=== PATIENT | male | born 1980 | race Hispanic/Latino ===

== ENCOUNTER 2022-12-13 09:59 | Emergency (ER) | payer OTHER, SELFPAY ==
[2022-12-13 10:02] VITALS: BP 148/99; PULSE 93; RESP 18; TEMP 36.2; O2SAT 100; BMI 28.6
--- NOTE | 2022-12-13 10:05 | DI.RAD.S_ITS ---
PROCEDURE: XR CHEST 1V INDICATIONS: Shortness of breath TECHNIQUE: One view of the chest was acquired. COMPARISON: None. FINDINGS: Surgical changes and devices: Cholecystectomy clips. Lungs and pleura: Lungs are clear. No pleural effusions or pneumothorax. Mediastinum: Mediastinal contours appear normal. Heart size is normal. Bones and chest wall: No suspicious bony lesions. Overlying soft tissues appear unremarkable. IMPRESSION: Portable chest within normal limits for age. Dictated by: Marina Morales M.D. on 12/13/2022 at 10:59 Approved by: Marina Morales M.D. on 12/13/2022 at 11:00
[2022-12-13 10:37] LABS: INR 1.1 (0.9-1.3); Prothrombin Time 12.1 SECONDS (10.1-12.7)
[2022-12-13 10:43] LABS: Add Manual Diff / Slide Review NO; Basophils Absolute Auto 0 /uL (0-100); Basophils Percent Auto 0.4 % (0-2); Eosinophils Absolute Auto 200 /uL (0-450); Eosinophils Percent Auto 2.7 % (2-4); Hemoglobin 14.4 g/dL (13.5-17.5); Lymphocytes Absolute Auto 2500 /uL (1100-4500); Lymphocytes Percent Auto 45.3 % (25-40); Mean Corpuscular HGB Conc 34.3 % (30-36); Mean Corpuscular Hemoglobin 30.1 PG (26-34); Mean Corpuscular Volume 87.7 fL (80-100); Monocytes Absolute Auto 500 /uL (0-900); Monocytes Percent Auto 9.6 % (3-14); Neutrophils Absolute Auto 2400 /uL (1500-7000); Platelet Count 235 X10^3/uL (150-400); Red Blood Cell Count 4.79 X10^6/uL (4.5-5.9); Red Cell Distribution Width 13.5 % (11.6-14.8); White Blood Cell Count 5.6 X10^3/uL (4.5-11.0)
[2022-12-13 10:45] LABS: Lactate (Lactic Acid) 1.4 mmol/L (0.7-2.1)
[2022-12-13 10:46] LABS: Alanine Aminotransferase 29 IU/L (<50); Albumin 4.3 g/dL (3.5-5.0); Albumin Globulin Ratio 1.5 (1.0-2.8); Alkaline Phosphatase 73 U/L (38-126); Aspartate Aminotransferase 28 IU/L (17-59); BUN Creatinine Ratio 22.8 (6-22); Bilirubin Total 0.4 mg/dL (0.2-1.3); Blood Urea Nitrogen 18 mg/dL (9-20); Calcium 8.9 mg/dL (8.4-10.2); Carbon Dioxide 22 mmol/L (22-32); Chloride 102 mmol/L (98-107); Estimated Glomerular Filt Rate > 60 mL/min (>60); Globulin 2.9 g/dL (1.7-4.1); Glucose 108 mg/dL (70-100); HEMOLYSIS < 15 (0-50); Sodium 134 mmol/L (137-145); Total Protein 7.2 g/dL (6.3-8.2)
[2022-12-13 10:57] LABS: NT-proBNP (BNP-Adult 18+) 43 pg/mL (<125); Troponin I < 0.012 ng/mL (0.01-0.034)
--- NOTE | 2022-12-13 12:38 | ED.SOB ---
HPI - SOB/Dyspnea <Hung Wall PA-C - Last Filed: 12/13/22 14:48> General Chief Complaint: Shortness of Breath/Dyspnea Stated Complaint: cant breathe Time Seen by Provider: 12/13/22 12:35 Source: patient Mode of arrival: Ambulatory Limitations: no limitations History of Present Illness HPI Narrative: 42-year-old male with past medical history anxiety presents to the ED with 1 episode of shortness of breath, tingling in bilateral hands, lightheadedness this morning. Patient states that he had sudden onset of shortness of breath, bilateral hand tingling, nausea and lightheadedness this morning. Patient states that he has not had any increased stress. Patient denies that he is had symptoms like these from his anxiety, although he has had some milder panic attacks. Patient states that his symptoms have completely and spontaneous resolved in the ED. patient denies chest pain, shortness of breath. Patient's father suffered an early cardiac at age 48, after 3 heart attacks in his mid to late 40s. Related Data Allergies Allergy/AdvReac Type Severity Reaction Status Date / Time No Known Drug Allergies Allergy Verified 12/13/22 10:02 Review of Systems <Hung Wall PA-C - Last Filed: 12/13/22 14:48> Review of Systems ROS Unobtainable: All systems reviewed & are unremarkable except as noted in HPI and below Constitutional Constitutional: Denies chills, Denies fatigue, Denies fever(s), Denies frequent falls, Denies lethargy and Denies weakness Eyes Eyes: Denies change in vision, Denies eye discharge, Denies irritation and Denies loss of vision ENT Ears, Nose, Mouth, and Throat: Denies change in voice, Denies dizziness, Denies neck pain, Denies sore throat and Denies throat swelling Cardiovascular Cardiovascular: Denies chest pain, Denies irregular heart rhythm, Denies lightheadedness, Denies palpitations, Reports dyspnea, Denies dyspnea on exertion and Denies orthopnea Respiratory Respiratory: Denies cough, Reports dyspnea, Denies dyspnea on exertion and Denies wheezing Gastrointestinal Gastrointestinal: Denies abdominal pain, Denies change in bowel habits, Denies diarrhea, Reports nausea and Denies vomiting Genitourinary Genitourinary: Denies hematuria, Denies flank pain, Denies urinary incontinence and Denies urinary urgency Musculoskeletal Musculoskeletal: Denies back pain, Denies muscle weakness, Denies neck pain, Denies numbness and Reports tingling (Bilateral hands) Integumentary/Breasts Skin/Breast: Denies pruritus, Denies erythema, Denies rash and Denies wounds Neurologic Neurologic: Denies behavioral changes, Denies confusion, Denies dizziness, Denies frequent falls, Denies loss of vision, Denies numbness, Reports tingling (Bilateral hands) and Denies weakness Psychiatric Psychiatric: Denies anxiety, Denies behavioral changes, Denies confusion, Denies depression, Denies homicidal ideation and Denies suicidal ideation Endocrine Endocrine: Denies fatigue, Denies flushing and Denies palpitations Hematologic/Lymphatic Hematologic/Lymphatic: Denies easy bruising Allergic/Immunologic Allergic/Immunologic: Denies urticaria, Denies throat swelling and Denies wheezing Patient History <Hung Wall PA-C - Last Filed: 12/13/22 14:48> Social History Smoking Status: Unknown if ever smoked Smoking Status: Unknown if ever smoked alcohol intake frequency: holidays/special occasions only Substance Use Type: marijuana Exam <uHng Wall PA-C - Last Filed: 12/13/22 14:48> Narrative Exam Narrative: Const General:?cooperative, healthy appearing and comfortable [facility] Head:?normal to inspection Ears:?hearing grossly normal bilaterally Nose:?external nose normal Face and sinus:?normal facial exam and sinuses nontender Mouth:?oral mucosae normal Throat:?posterior oropharynx normal Eyes General:?appearance normal, both eyes and all related structures Neck Neck:?normal visual inspection and no lymphadenopathy noted Resp Effort & Inspection:?normal respiratory effort Auscultation:?clear to auscultation bilaterally Cardio Rate:?regular rate Rhythm:?regular rhythm Neuro General:?patient alert, patient awake and patient oriented x3 Initial Vital Signs Initial Vital Signs: Vital Signs Temperature 97.2 F L 12/13/22 10:02 Pulse Rate 93 H 12/13/22 10:02 Respiratory Rate 18 12/13/22 10:02 Blood Pressure 148/99 H 12/13/22 10:02 Pulse Oximetry 100 12/13/22 10:02 Oxygen Delivery Method Room Air 12/13/22 10:02 <Margarita Vigil DO - Last Filed: 12/15/22 01:18> Initial Vital Signs Initial Vital Signs: Vital Signs Temperature 97.2 F L 12/13/22 10:02 Pulse Rate 93 H 12/13/22 10:02 Respiratory Rate 18 12/13/22 10:02 Blood Pressure 148/99 H 12/13/22 10:02 Pulse Oximetry 100 12/13/22 10:02 Oxygen Delivery Method Room Air 12/13/22 10:02 Course <Hung Wall PA-C - Last Filed: 12/13/22 14:48> Orders Ordered: ED Orders 12/13/22 10:05 XR chest 1V Stat Measure peak expiratory flow ONCE RT Consult Eval and Treat NOW 12/13/22 10:09 EKG-12 Lead Stat 12/13/22 10:23 Complete Blood Count AUTO DIFF Stat Comprehensive Metabolic Panel Stat Lactate (Lactic Acid) Stat NT-proBNP (BNP-Adult 18+) Stat Prothrombin Time INR Stat Troponin I Stat 12/13/22 13:12 Troponin I Stat Vital Signs Vital signs: Vital Signs - 8 hr 12/13/22 10:02 12/13/22 12:44 12/13/22 14:08 Temperature 97.2 F L Pulse Rate 93 H 58 L 60 Respiratory Rate 18 14 16 Blood Pressure 148/99 H 115/61 Pulse Oximetry 100 99 98 Oxygen Delivery Method Room Air Room Air Room Air <Margarita Vigil, DO - Last Filed: 12/15/22 01:18> Orders Ordered: ED Orders 12/13/22 10:05 XR chest 1V Stat Measure peak expiratory flow ONCE RT Consult Eval and Treat NOW 12/13/22 10:09 EKG-12 Lead Stat 12/13/22 10:23 Complete Blood Count AUTO DIFF Stat Comprehensive Metabolic Panel Stat Lactate (Lactic Acid) Stat NT-proBNP (BNP-Adult 18+) Stat Prothrombin Time INR Stat Troponin I Stat 12/13/22 13:12 Troponin I Stat Vital Signs Vital signs: Vital Signs - 8 hr 12/13/22 10:02 12/13/22 12:44 12/13/22 14:08 Temperature 97.2 F L Pulse Rate 93 H 58 L 60 Respiratory Rate 18 14 16 Blood Pressure 148/99 H 115/61 Pulse Oximetry 100 99 98 Oxygen Delivery Method Room Air Room Air Room Air MDM - SOB/Dyspnea <ESTEFANI [place] Last Filed: 12/13/22 14:48> Lab Data 12/13/22 10:23 12/13/22 10:23 Labs: Lab Results 12/13/22 12/13/22 12/13/22 Range/Units 10:23 10:23 10:23 WBC 5.6 (4.5-11.0) X10^3/uL RBC 4.79 (4.5-5.9) X10^6/uL Hgb 14.4 (13.5-17.5) g/dL Hct 42.0 (41-53) % MCV 87.7 (80-100) fL MCH 30.1 (26-34) PG MCHC 34.3 (30-36) % RDW 13.5 (11.6-14.8) % Plt Count 235 (150-400) X10^3/uL Neut % (Auto) 42.0 L (50-75) % Lymph % (Auto) 45.3 H (25-40) % [place] % (Auto) 9.6 (3-14) % Eos % (Auto) 2.7 (2-4) % Baso % (Auto) 0.4 (0-2) % Neut # (Auto) 2400 (8662-2869) /uL Lymph # (Auto) 2500 (0917-0668) /uL [place] # (Auto) 500 (0-900) /uL Eos # (Auto) 200 (0-450) /uL Baso # (Auto) 0 (0-100) /uL PT 12.1 (10.1-12.7) SECONDS INR 1.1 (0.9-1.3) Sodium 134 L (137-145) mmol/L Potassium 4.0 (3.4-5.1) mmol/L Chloride 102 (98-107) mmol/L Carbon Dioxide 22 (22-32) mmol/L BUN 18 (9-20) mg/dL Creatinine 0.79 (0.66-1.25) mg/dL Estimated GFR > 60 (>60) mL/min BUN/Creatinine Ratio 22.8 H (6-22) Glucose 108 H (70-100) mg/dL Lactate (0.7-2.1) mmol/L Calcium 8.9 (8.4-10.2) mg/dL Total Bilirubin 0.4 (0.2-1.3) mg/dL AST 28 (17-59) IU/L ALT 29 (<50) IU/L Alkaline Phosphatase 73 (38-126) U/L Troponin I < 0.012 (0.01-0.034) ng/mL NT-Pro-B Natriuret Pep 43 (<125) pg/mL Total Protein 7.2 (6.3-8.2) g/dL Albumin 4.3 (3.5-5.0) g/dL Globulin 2.9 (1.7-4.1) g/dL Albumin/Globulin Ratio 1.5 (1.0-2.8) 12/13/22 12/13/22 Range/Units 10: 13:12 WBC (4.5-11.0) X10^3/uL RBC (4.5-5.9) X10^6/uL Hgb (13.5-17.5) g/dL Hct (41-53) % MCV (80-100) fL MCH (26-34) PG MCHC (30-36) % RDW (11.6-14.8) % Plt Count (150-400) X10^3/uL Neut % (Auto) (50-75) % Lymph % (Auto) (25-40) % [place] % (Auto) (3-14) % Eos % (Auto) (2-4) % Baso % (Auto) (0-2) % Neut # (Auto) (7416-3949) /uL Lymph # (Auto) (3460-7184) /uL [place] # (Auto) (0-900) /uL Eos # (Auto) (0-450) /uL Baso # (Auto) (0-100) /uL PT (10.1-12.7) SECONDS INR (0.9-1.3) Sodium (137-145) mmol/L Potassium (3.4-5.1) mmol/L Chloride (98-107) mmol/L Carbon Dioxide (22-32) mmol/L BUN (9-20) mg/dL Creatinine (0.66-1.25) mg/dL Estimated GFR (>60) mL/min BUN/Creatinine Ratio (6-22) Glucose (70-100) mg/dL Lactate 1.4 (0.7-2.1) mmol/L Calcium (8.4-10.2) mg/dL Total Bilirubin (0.2-1.3) mg/dL AST (17-59) IU/L ALT (<50) IU/L Alkaline Phosphatase (38-126) U/L Troponin I < 0.012 (0.01-0.034) ng/mL NT-Pro-B Natriuret Pep (<125) pg/mL Total Protein (6.3-8.2) g/dL Albumin (3.5-5.0) g/dL Globulin (1.7-4.1) g/dL Albumin/Globulin Ratio (1.0-2.8) MDM Narrative Medical decision making narrative: 42-year-old male with past medical history anxiety presents to the ED with 1 episode of shortness of breath, tingling in bilateral hands, lightheadedness this morning. Concern for ACS versus dehydration versus panic attack versus other. Will obtain EKG, chest x-ray, labs, troponin, BNP. Will re-evaluate. Labs were within normal limits. Troponin and BNP within normal limits. EKG is normal sinus rhythm, no acute ST-T changes. Chest x-ray without acute findings. Given family history of early cardiac , discussed the importance of a 2nd troponin and EKG with patient. Will obtain repeat troponin and EKG and reassess. Repeat troponin and EKG with no acute findings. Discussed ED return precautions with patient. Patient verbalized understanding. HEART score: 2, low risk, can discharge home. Medical records reviewed: Yes <Margarita Vigil DO - Last Filed: 12/15/22 01:18> Lab Data Labs: Lab Results 12/13/22 12/13/22 12/13/22 Range/Units 10:23 10:23 10:23 WBC 5.6 (4.5-11.0) X10^3/uL RBC 4.79 (4.5-5.9) X10^6/uL Hgb 14.4 (13.5-17.5) g/dL Hct 42.0 (41-53) % MCV 87.7 (80-100) fL MCH 30.1 (26-34) PG MCHC 34.3 (30-36) % RDW 13.5 (11.6-14.8) % Plt Count 235 (150-400) X10^3/uL Neut % (Auto) 42.0 L (50-75) % Lymph % (Auto) 45.3 H (25-40) % [place] % (Auto) 9.6 (3-14) % Eos % (Auto) 2.7 (2-4) % Baso % (Auto) 0.4 (0-2) % Neut # (Auto) 2400 (5863-1303) /uL Lymph # (Auto) 2500 (2167-8809) /uL [place] # (Auto) 500 (0-900) /uL Eos # (Auto) 200 (0-450) /uL Baso # (Auto) 0 (0-100) /uL PT 12.1 (10.1-12.7) SECONDS INR 1.1 (0.9-1.3) Sodium 134 L (137-145) mmol/L Potassium 4.0 (3.4-5.1) mmol/L Chloride 102 (98-107) mmol/L Carbon Dioxide 22 (22-32) mmol/L BUN 18 (9-20) mg/dL Creatinine 0.79 (0.66-1.25) mg/dL Estimated GFR > 60 (>60) mL/min BUN/Creatinine Ratio 22.8 H (6-22) Glucose 108 H (70-100) mg/dL Lactate (0.7-2.1) mmol/L Calcium 8.9 (8.4-10.2) mg/dL Total Bilirubin 0.4 (0.2-1.3) mg/dL AST 28 (17-59) IU/L ALT 29 (<50) IU/L Alkaline Phosphatase 73 (38-126) U/L Troponin I < 0.012 (0.01-0.034) ng/mL NT-Pro-B Natriuret Pep 43 (<125) pg/mL Total Protein 7.2 (6.3-8.2) g/dL Albumin 4.3 (3.5-5.0) g/dL Globulin 2.9 (1.7-4.1) g/dL Albumin/Globulin Ratio 1.5 (1.0-2.8) 12/13/22 12/13/22 Range/Units 10:23 13:12 WBC (4.5-11.0) X10^3/uL RBC (4.5-5.9) X10^6/uL Hgb (13.5-17.5) g/dL Hct (41-53) % MCV (80-100) fL MCH (26-34) PG MCHC (30-36) % RDW (11.6-14.8) % Plt Count (150-400) X10^3/uL Neut % (Auto) (50-75) % Lymph % (Auto) (25-40) % [place] % (Auto) (3-14) % Eos % (Auto) (2-4) % Baso % (Auto) (0-2) % Neut # (Auto) (6965-4419) /uL Lymph # (Auto) (1872-0465) /uL [place] # (Auto) (0-900) /uL Eos # (Auto) (0-450) /uL Baso # (Auto) (0-100) /uL PT (10.1-12.7) SECONDS INR (0.9-1.3) Sodium (137-145) mmol/L Potassium (3.4-5.1) mmol/L Chloride (98-107) mmol/L Carbon Dioxide (22-32) mmol/L BUN (9-20) mg/dL Creatinine (0.66-1.25) mg/dL Estimated GFR (>60) mL/min BUN/Creatinine Ratio (6-22) Glucose (70-100) mg/dL Lactate 1.4 (0.7-2.1) mmol/L Calcium (8.4-10.2) mg/dL Total Bilirubin (0.2-1.3) mg/dL AST (17-59) IU/L ALT (<50) IU/L Alkaline Phosphatase (38-126) U/L Troponin I < 0.012 (0.01-0.034) ng/mL NT-Pro-B Natriuret Pep (<125) pg/mL Total Protein (6.3-8.2) g/dL Albumin (3.5-5.0) g/dL Globulin (1.7-4.1) g/dL Albumin/Globulin Ratio (1.0-2.8) ECG Data Interpretation: [facility] EKG 1 sinus rhythm rate 88 IN interval 162 QRS 86 QTC 450 tall T-waves precordial no obvious ST changes no priors to compare EKG 2. Sinus rhythm rate 63 persistent T-waves no J-point elevation agree with computer probable early repolarization Discharge Plan Departure Patient Disposition: Home Clinical Impression: Shortness of Breath Instructions: DI for Shortness of Breath Activity Restrictions/Additional Instructions: Were evaluated in the ED today for some shortness of breath and tingling in the hands. Your EKG, chest x-ray, labs were normal. It is reassuring that your symptoms have spontaneous resolved in the ED. However, it is recommended that we repeat your troponin and EKG to rule out cardiac causes of your symptoms. We have repeated your EKG and troponin which were again normal. At this point, it appears that your symptoms are less likely due to cardiac causes and more likely a panic attack. Please return to the ED if you have worsening symptoms, chest pain, shortness of breath, nausea, vomiting. Please follow-up with your PCP as soon as possible. Referrals: Miscellaneous,Doctor, [Primary Care Provider] - Stand Alone Forms: Patient Portal/API <Margarita Vigil DO - Last Filed: 12/15/22 01:18> Cosign ED Attending Ranjanature Attestation: I was immediately available in the department for consultation. Documentation has been reviewed.
[2022-12-13 12:44] VITALS: BP 115/61; PULSE 58; RESP 14; O2SAT 99
--- NOTE | 2022-12-13 12:46 | PC.NURSE ---
Pt denies anything stressful in life,hx anxiety. Pt felt like he couldn't get a deep breath,heaviness in chest and tingling in extremities.
[2022-12-13 13:39] LABS: Troponin I < 0.012 ng/mL (0.01-0.034)
[2022-12-13 14:08] VITALS: PULSE 60; RESP 16; O2SAT 98
== END 2022-12-13 14:09 | disposition home or self-care (01) ==
PROVIDERS: Emergency Medicine; Emergency Provider Student in an Organized Health Care Education/Training Program
DX: R06.02 Shortness of breath (principal)
CPT/HCPCS: 36415; 71045; 80053; 83605; 83880; 84484; 85025; 85610; 93005; 99283; 99284

== ENCOUNTER → 2023-05-18 09:45 | Outpatient (CLI) | payer BC, SELFPAY ==
[2023-05-18 10:23] LABS: Appearance Urine UA CLEAR; Bilirubin Urine UA NEGATIVE (NEGATIVE); Color Urine UA YELLOW; Glucose Urine UA NEGATIVE (Negative); Ketones Urine UA NEGATIVE (NEGATIVE); Leukocyte Esterase Urine UA NEGATIVE (NEGATIVE); Nitrite Urine UA NEGATIVE (Negative); Occult Blood Urine UA NEGATIVE (Negative); Protein Urine UA NEGATIVE (Negative); Urobilinogen Urine UA 0.2 E.U./dL (0.2)
[2023-05-18 10:30] LABS: Add Manual Diff / Slide Review NO; Basophils Absolute Auto 0 /uL (0-100); Basophils Percent Auto 0.3 % (0-2); Eosinophils Absolute Auto 200 /uL (0-450); Eosinophils Percent Auto 3.6 % (2-4); Hematocrit 44.2 % (41-53); Hemoglobin 15.3 g/dL (13.5-17.5); Lymphocytes Absolute Auto 2400 /uL (1100-4500); Lymphocytes Percent Auto 39.4 % (25-40); Mean Corpuscular HGB Conc 34.6 % (30-36); Mean Corpuscular Hemoglobin 30.6 PG (26-34); Mean Corpuscular Volume 88.3 fL (80-100); Monocytes Absolute Auto 500 /uL (0-900); Monocytes Percent Auto 7.5 % (3-14); Neutrophils Absolute Auto 3000 /uL (1500-7000); Neutrophils Percent Auto 49.2 % (50-75); Platelet Count 247 X10^3/uL (150-400); Red Blood Cell Count 5.01 X10^6/uL (4.5-5.9); Red Cell Distribution Width 13.9 % (11.6-14.8); White Blood Cell Count 6.1 X10^3/uL (4.5-11.0)
[2023-05-18 10:53] LABS: Alanine Aminotransferase 38 IU/L (<50); Albumin 4.5 g/dL (3.5-5.0); Albumin Globulin Ratio 1.4 (1.0-2.8); Alkaline Phosphatase 53 U/L (38-126); Aspartate Aminotransferase 28 IU/L (17-59); BUN Creatinine Ratio 19.5 (6-22); Bilirubin Total 0.7 mg/dL (0.2-1.3); Blood Urea Nitrogen 17 mg/dL (9-20); Carbon Dioxide 23 mmol/L (22-32); Chloride 106 mmol/L (98-107); Cholesterol 220 mg/dL (140-199); Estimated Glomerular Filt Rate > 60 mL/min (>60); Globulin 3.2 g/dL (1.7-4.1); Glucose 97 mg/dL (70-100); HDL Cholesterol 33 mg/dL (40-60); HEMOLYSIS 16 (0-50); LDL Cholesterol Calculated 165 mg/dL (<100); Potassium 4.6 mmol/L (3.4-5.1); Sodium 140 mmol/L (137-145); Total Protein 7.7 g/dL (6.3-8.2); Triglycerides 112 mg/dL (35-150)
[2023-05-18 10:58] LABS: Bacteria Urine None Seen; Culture Indicated Urine Cult Not Indicated; RBC Urine None Seen (0-5/HPF); Squamous Epithelial Cell Urine None Seen (0-5/HPF); Urine Volume 10mL (spun); WBC Urine 0-1/HPF (0-5/HPF)
[2023-05-18 12:13] LABS: Hemoglobin A1C% w Est Avg Glu 5.3 % (4.0-6.0)
[2023-05-24 15:00] LABS: HIV-1 RNA by PCR <20 copies/mL (.)
== END ==
PROVIDERS: Referring Provider Internal Medicine; Visit Provider Internal Medicine
DX: B20 Human immunodeficiency virus [HIV] disease (principal)
CPT/HCPCS: 36415; 80053; 80061; 81001; 83036; 85025; 87536

== ENCOUNTER → 2024-03-23 09:17 | Outpatient (CLI) | payer BC, SELFPAY ==
[2024-03-23 10:23] LABS: Appearance Urine UA CLEAR; Bilirubin Urine UA NEGATIVE (NEGATIVE); Color Urine UA YELLOW; Glucose Urine UA NEGATIVE (Negative); Ketones Urine UA NEGATIVE (NEGATIVE); Leukocyte Esterase Urine UA NEGATIVE (NEGATIVE); Nitrite Urine UA NEGATIVE (Negative); Occult Blood Urine UA NEGATIVE (Negative); Protein Urine UA NEGATIVE (Negative); Specific Gravity Urine UA 1.015 (1.000-1.035); Urobilinogen Urine UA 0.2 E.U./dL (0.2)
[2024-03-23 10:37] LABS: Bacteria Urine Occasional (0-1); RBC Urine 0-1/HPF (0-5/HPF); Squamous Epithelial Cell Urine None Seen (0-5/HPF); Urine Volume 10mL (spun); WBC Urine 0-1/HPF (0-5/HPF)
[2024-03-23 10:38] LABS: Culture Indicated Urine Specimen Cultured
[2024-03-23 11:44] LABS: Alanine Aminotransferase 44 IU/L (<50); Albumin 4.4 g/dL (3.5-5.0); Albumin Globulin Ratio 1.7 (1.0-2.8); Alkaline Phosphatase 58 U/L (38-126); Aspartate Aminotransferase 34 IU/L (17-59); BUN Creatinine Ratio 18.8 (6-22); Bilirubin Total 0.4 mg/dL (0.2-1.3); Blood Urea Nitrogen 18 mg/dL (9-20); Calcium 9.4 mg/dL (8.4-10.2); Carbon Dioxide 26 mmol/L (22-32); Chloride 105 mmol/L (98-107); Cholesterol 201 mg/dL (140-199); Estimated Glomerular Filt Rate > 60 mL/min (>60); Globulin 2.6 g/dL (1.7-4.1); Glucose 102 mg/dL (70-100); HDL Cholesterol 34 mg/dL (40-60); HEMOLYSIS < 15 (0-50); LDL Cholesterol Calculated 151 mg/dL (<100); Potassium 4.7 mmol/L (3.4-5.1); Sodium 138 mmol/L (137-145); Triglycerides 81 mg/dL (35-150)
[2024-03-25 14:35] LABS: Absolute CD 4 Helper 907 /uL (359-1519); Eosinophils 4 % (Not Estab.); Eosinophils (Absolute) 0.2 x10E3/uL (0.0-0.4); Hemacrit 46.2 % (37.5-51.0); Hemoglobin 15.6 g/dL (13.0-17.7); Immature Granulocytes 1 % (Not Estab.); Lymphocytes 40 % (Not Estab.); Lymphocytes (Absolute) 2.4 x10E3/uL (0.7-3.1); MCHC 30.4 pg (26.6-33.0); MCHC 33.8 g/dL (31.5-35.7); MCV 90 fL (79-97); Monocytes 9 % (Not Estab.); Monocytes (Absolute) 0.5 x10E3/uL (0.1-0.9); Neutrophils 45 % (Not Estab.); Neutrophils (Absolute) 2.9 x10E3/uL (1.4-7.0); Percent CD 4 Pos Lymph 37.8 % (30.8-58.5); Platelets 285 x10E3/uL (150-450); RDW 13.5 % (11.6-15.4); Red Blood Cells 5.13 x10E6/uL (4.14-5.80); White Blood Cells 6.1 x10E3/uL (3.4-10.8)
[2024-03-27 15:38] LABS: HIV-1 RNA by PCR <20 copies/mL (.)
== END ==
PROVIDERS: PCP Family Medicine; Referring Provider Family Medicine; Visit Provider Family Medicine
DX: Z51.81 Encounter for therapeutic drug level monitoring (principal); Z21 Asymptomatic human immunodeficiency virus [HIV] infection status
CPT/HCPCS: 36415; 80053; 80061; 81001; 86360; 86361; 87086; 87536

== ENCOUNTER 2024-06-08 11:49 | Emergency (ER) | payer BC, SELFPAY ==
[2024-06-08] VITALS (13 sets, daily range): BP systolic 127–141; BP diastolic 68–96; PULSE 62–83; RESP 14–23; TEMP 37.1; O2SAT 93–98; BMI 28.6
--- NOTE | 2024-06-08 12:55 | DI.US.S_ITS ---
PROCEDURE: US PERIPH VENOUS UP EXTREM RT INDICATIONS: swollen, painful arm. atraumatic. TECHNIQUE: Real-time imaging, as well as color and pulse Doppler interrogation, was performed of the upper extremity deep veins from the inferior neck to the antecubital fossa. COMPARISON: None. FINDINGS: The internal jugular vein, visualized portions of the subclavian vein, axillary, and brachial veins are free of intraluminal thrombus. Where physically possible, the veins are normally compressible. Color and pulse Doppler demonstrate normal intraluminal flow, with expected phasicity and pulsatility. Additional scanning of the cephalic and basilic veins of the superficial system demonstrates normal compressibility, without thrombus. IMPRESSION: No findings of upper extremity deep venous thrombosis can be seen. Dictated by: Marina Morales M.D. on 06/08/2024 at 13:42 Approved by: Marina Morales M.D. on 06/08/2024 at 13:42
--- NOTE | 2024-06-08 12:58 | ED.EXTPRO ---
HPI - Extremity Problem <Juliet Leyva PA-C - Last Filed: 06/08/24 18:33> General Chief complaint: Extremity Problem,Nontraumatic Stated complaint: Pain in Right Arm Time Seen by Provider: 06/08/24 12:01 Mode of arrival: Ambulatory History of Present Illness HPI Narrative: 43-year-old male with history of HIV positive x 20 years, stable on Bictarvy, here today for right forearm pain x1 week. States for the last week he has had gradually increasing pain deep in his right forearm without associated swelling or redness. No associated trauma or injury. 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 States his arm feels warm. States he feels a numb tingling sensation in his hand and wrist at times. States the pain is worse this morning. Since yesterday he has also had discomfort that extends into his right pectoral region. There is no associated shortness of breath or chest pain, but he does feel the discomfort in the pectoral/right axillary region. His father had a heart attack at age 40 and another at age 50 from which she . Patient's states that patient's dad may or may not have had a blood clot in his upper extremity as well. Patient denies any IV drug use, has had any recent IVs or injections in the arm. Related Data Previous Rx's Medication Instructions Recorded citalopram 20 mg tablet 20 mg PO DAILY #90 tabs 03/15/24 bictegravir 50 mg-emtricitabine 1 tab PO DAILY #90 tabs 03/25/24 200 mg-tenofovir alafenam 25 mg tablet (Biktarvy) Allergies Allergy/AdvReac Type Severity Reaction Status Date / Time No Known Drug Allergies Allergy Verified 06/08/24 11:53 Review of Systems <Juliet Leyva PA-C - Last Filed: 06/08/24 18:33> Review of Systems ROS Unobtainable: All systems reviewed & are unremarkable except as noted in HPI and below Patient History <Juliet Leyva PA-C - Last Filed: 06/08/24 18:33> Medical History (Updated 06/08/24 @ 21:31 by Margarita Vigil DO) Anxiety Depression ELIZA (obstructive sleep apnea) Colon polyps HIV (human immunodeficiency virus infection) Social History Smoking Status: Unknown if ever smoked Smoking Status: Unknown if ever smoked alcohol intake frequency: holidays/special occasions only Exam <Juliet Leyva PA-C - Last Filed: 06/08/24 18:33> Narrative Exam Narrative: GENERAL: [43] year old patient appears stated age. Well-developed patient, in no acute distress. HEAD: Atraumatic. Normocephalic. EYES: Pupils equal round and reactive. Extraocular motions intact. No scleral icterus. No injection or drainage. ENT: Nose without bleeding, purulent drainage. Airway patent NECK: Trachea midline. Non tender CARDIOVASCULAR: Regular rate and rhythm without murmurs, gallops, or rubs. RESPIRATORY: Clear to auscultation. Breath sounds equal bilaterally. No wheezes, rales, or rhonchi. EXTREMITIES: Right upper extremity without obvious edema, erythema, or other visible abnormality. Full range of motion of the shoulder, elbow, wrist and fingers. There is no joint pain or tenderness on palpation or range of motion. His upper forearm is warm to the touch and slightly firm in 1 area but there is no erythema, induration, or fluctuance noted. Does not appear infectious. Normal cap refill, signs of perfusion, and sensation in the upper extremity. NEURO: AOx3. No focal neurologic deficits. SKIN: No rash or erythema of visible areas Initial Vital Signs Initial Vital Signs: Vital Signs Temperature 98.8 F 06/08/24 11:53 Pulse Rate 78 06/08/24 11:53 Respiratory Rate 14 06/08/24 11:53 Blood Pressure 138/82 06/08/24 11:53 Pulse Oximetry 98 06/08/24 11:53 Oxygen Delivery Method Room Air 06/08/24 11:53 <Margarita Vigil DO - Last Filed: 06/08/24 21:32> Initial Vital Signs Initial Vital Signs: Vital Signs Temperature 98.8 F 06/08/24 11:53 Pulse Rate 78 06/08/24 11:53 Respiratory Rate 14 06/08/24 11:53 Blood Pressure 138/82 06/08/24 11:53 Pulse Oximetry 98 06/08/24 11:53 Oxygen Delivery Method Room Air 06/08/24 11:53 Course <Juliet Leyva PA-C - Last Filed: 06/08/24 18:33> Orders Ordered: ED Orders 06/08/24 12:55 US periph venous up extrem rt Stat 06/08/24 14:00 CBC Auto Diff [Complete Blood Count AUTO DIFF] Stat CMP [Comprehensive Metabolic Panel] Stat Creatine Kinase Stat D Dimer Stat 06/08/24 18:00 EKG-12 Lead Stat 06/08/24 18:05 Troponin & CK Cardiac Panel Stat Discontinued Medications Enoxaparin Sodium (Enoxaparin 40 Mg/0.4 Ml Syringe) 90 mg 1 mg/kg (90 mg) SUBCUT NOW ONE Stop: 06/08/24 18:11 Last Admin: 06/08/24 18:25 Dose: Not Given Documented By: DANN Enoxaparin Sodium (Enoxaparin 100 Mg/Ml Syringe) 100 mg SUBCUT NOW ONE Stop: 06/08/24 18:25 Last Admin: 06/08/24 18:27 Dose: 100 mg Documented By: STEPHANIE Sodium Chloride (Normal Saline 0.9%) 1,000 mls @ 1,000 mls/hr IV BOLUS ONE Stop: 06/08/24 19:09 Last Infusion: 06/08/24 18:50 Dose: Infused Documented By: Admin: 06/08/24 18:21 Dose: 1,000 mls/hr Documented By: STEPHANIE Vital Signs Vital signs: Vital Signs - 8 hr 06/08/24 16:00 06/08/24 16:18 06/08/24 16:30 Pulse Rate 68 62 Pulse Rate [Right Radial] 64 Respiratory Rate 23 14 Blood Pressure 136/80 132/68 Pulse Oximetry 98 97 Oxygen Delivery Method Room Air Room Air 06/08/24 17:00 06/08/24 17:30 06/08/24 18:14 Pulse Rate 70 72 74 Pulse Rate [Right Radial] Respiratory Rate 22 23 Blood Pressure 127/79 132/78 Pulse Oximetry 97 96 95 Oxygen Delivery Method Room Air 06/08/24 18:16 06/08/24 18:16 06/08/24 20:55 Pulse Rate 72 83 Pulse Rate [Right Radial] Respiratory Rate 15 Blood Pressure 132/86 Pulse Oximetry 97 93 Oxygen Delivery Method 06/08/24 20:58 06/08/24 20:58 Pulse Rate 64 Pulse Rate [Right Radial] Respiratory Rate 18 Blood Pressure 141/96 H Pulse Oximetry 98 Oxygen Delivery Method Room Air <Margarita Vigil, DO - Last Filed: 06/08/24 21:32> Orders Ordered: ED Orders 06/08/24 12:55 periph venous up extrem rt Stat 06/08/24 14:00 CBC Auto Diff [Complete Blood Count AUTO DIFF] Stat CMP [Comprehensive Metabolic Panel] Stat Creatine Kinase Stat D Dimer Stat 06/08/24 18:00 EKG-12 Lead Stat 06/08/24 18:05 Troponin & CK Cardiac Panel Stat Discontinued Medications Enoxaparin Sodium (Enoxaparin 40 Mg/0.4 Ml Syringe) 90 mg 1 mg/kg (90 mg) SUBCUT NOW ONE Stop: 06/08/24 18:11 Last Admin: 06/08/24 18:25 Dose: Not Given Documented By: DANN Enoxaparin Sodium (Enoxaparin 100 Mg/Ml Syringe) 100 mg SUBCUT NOW ONE Stop: 06/08/24 18:25 Last Admin: 06/08/24 18:27 Dose: 100 mg Documented By: STEPHANIE Sodium Chloride (Normal Saline 0.9%) 1,000 mls @ 1,000 mls/hr IV BOLUS ONE Stop: 06/08/24 19:09 Last Infusion: 06/08/24 18:50 Dose: Infused Documented By: Admin: 06/08/24 18:21 Dose: 1,000 mls/hr Documented By: STEPHANIE Vital Signs Vital signs: Vital Signs - 8 hr 06/08/24 16:00 06/08/24 16:18 06/08/24 16:30 Pulse Rate 68 62 Pulse Rate [Right Radial] 64 Respiratory Rate 23 14 Blood Pressure 136/80 132/68 Pulse Oximetry 98 97 Oxygen Delivery Method Room Air Room Air 06/08/24 17:00 06/08/24 17:30 06/08/24 18:14 Pulse Rate 70 72 74 Pulse Rate [Right Radial] Respiratory Rate 22 23 Blood Pressure 127/79 132/78 Pulse Oximetry 97 96 95 Oxygen Delivery Method Room Air 06/08/24 18:16 06/08/24 18:16 06/08/24 20:55 Pulse Rate 72 83 Pulse Rate [Right Radial] Respiratory Rate 15 Blood Pressure 132/86 Pulse Oximetry 97 93 Oxygen Delivery Method 06/08/24 20:58 06/08/24 20:58 Pulse Rate 64 Pulse Rate [Right Radial] Respiratory Rate 18 Blood Pressure 141/96 H Pulse Oximetry 98 Oxygen Delivery Method Room Air MDM - Extremity (Nontraumatic) <Juliet Leyva PA-C - Last Filed: 06/08/24 18:33> Lab Data 06/08/24 14:00 06/08/24 14:00 Labs: Lab Results 06/08/24 06/08/24 Range/Units 14:00 18:05 WBC 5.1 (4.5-11.0) X10^3/uL RBC 5.06 (4.5-5.9) X10^6/uL Hgb 15.3 (13.5-17.5) g/dL Hct 44.4 (41-53) % MCV 87.8 (80-100) fL MCH 30.2 (26-34) PG MCHC 34.4 (30-36) % RDW 13.7 (11.6-14.8) % Plt Count 234 (150-400) X10^3/uL Neut % (Auto) 51.6 (50-75) % Lymph % (Auto) 34.6 (25-40) % Colbert % (Auto) 9.9 (3-14) % Eos % (Auto) 3.6 (2-4) % Baso % (Auto) 0.3 (0-2) % Neut # (Auto) 2600 (8495-7997) /uL Lymph # (Auto) 1700 (6297-7824) /uL Colbert # (Auto) 500 (0-900) /uL Eos # (Auto) 200 (0-450) /uL Baso # (Auto) 0 (0-100) /uL D-Dimer 3857 H (<500) ng/ml Sodium 140 (137-145) mmol/L Potassium 4.1 (3.4-5.1) mmol/L Chloride 107 (98-107) mmol/L Carbon Dioxide 25 (22-32) mmol/L BUN 18 (9-20) mg/dL Creatinine 0.91 (0.66-1.25) mg/dL Estimated GFR > 60 (>60) mL/min BUN/Creatinine Ratio 19.8 (6-22) Glucose 90 (70-100) mg/dL Calcium 8.7 (8.4-10.2) mg/dL Total Bilirubin 0.3 (0.2-1.3) mg/dL AST 85 H (17-59) IU/L ALT 83 H (<50) IU/L Alkaline Phosphatase 53 (38-126) U/L Total Creatine Kinase 825 H 743 H (55-170) U/L Troponin I < 0.012 (0.01-0.034) ng/mL Total Protein 7.1 (6.3-8.2) g/dL Albumin 4.3 (3.5-5.0) g/dL Globulin 2.8 (1.7-4.1) g/dL Albumin/Globulin Ratio 1.5 (1.0-2.8) Imaging Data US - DVT: Radiologist's Impression: [address] [address] Ultrasound Report Signed Patient: Miguel Saavedra MR#: [id number] : 1980 Acct:[id number] Age/Sex: 43 / M Date of Service: 06/08/24 Loc: ED Accession Number: [id number] Procedure: US periph venous up extrem rt Ordering Provider: Juliet Leyva PA-C PROCEDURE: US PERIPH VENOUS UP EXTREM RT INDICATIONS: swollen, painful arm. atraumatic. TECHNIQUE: Real-time imaging, as well as color and pulse Doppler interrogation, was performed of the upper extremity deep veins from the inferior neck to the antecubital fossa. COMPARISON: None. FINDINGS: The internal jugular vein, visualized portions of the subclavian vein, axillary, and brachial veins are free of intraluminal thrombus. Where physically possible, the veins are normally compressible. Color and pulse Doppler demonstrate normal intraluminal flow, with expected phasicity and pulsatility. Additional scanning of the cephalic and basilic veins of the superficial system demonstrates normal compressibility, without thrombus. IMPRESSION: No findings of upper extremity deep venous thrombosis can be seen. Dictated by: Marina Morales M.D. on 06/08/2024 at 13:42 Approved by: Marina Morales M.D. on 06/08/2024 at 13:42 [facility] Narrative Medical decision making narrative: Differential includes forearm strain/sprain, DVT of the upper extremity, cellulitis Patient's pain has no precipitating event. Pain is in in the right upper forearm and has some associated numbness and tingling sensations in his hand. He also feels some pain radiating up into his right pectoral/axillary region. There is some warmth to palpation of the affected area but no tenderness to palpation of the forearm, wrist, elbow, shoulder. There is no associated redness, induration or other signs of infection. He has been afebrile. He is HIV positive but denies IV drug use or any other risk factors for blood clots. He does have significant family history-his father had 2 early onset MIs with 1 causing his at age 50. Because there is no other obvious cause of his forearm discomfort, have concerns about a blood clot so ultrasound and D-dimer ordered Ultrasound of right upper extremity is negative for DVT. However his D-dimer is nearly 4000. This along with his symptoms radiating to his right pectoral region necessitates a CT angio to rule out PE. Patient placed on telemetry at this point, cardiac panel ordered. Patient is not complaining of significant pain, states it is just a deep ache in his right forearm but he declines any pain medication. CT scanner at this facility is on diversion, patient will need to be transferred to [facility] for CT and then return here. This was coordinated with scheduled and patient will be picked up at 1845. Discussed case Dr. Vigil at 1800-she recommends Lovenox SQ for now. Patient continues to be stable. EKG unremarkable. He is comfortable and not complaining of shortness of breath or chest pain but his symptoms a deep ache in his right forearm in the region continue. Patient has been signed off to Dr. Vigil at 1800. <Margarita Vigil, DO - Last Filed: 06/08/24 21:32> Lab Data Labs: Lab Results 06/08/24 06/08/24 Range/Units 14:00 18:05 WBC 5.1 (4.5-11.0) X10^3/uL RBC 5.06 (4.5-5.9) X10^6/uL Hgb 15.3 (13.5-17.5) g/dL Hct 44.4 (41-53) % MCV 87.8 (80-100) fL MCH 30.2 (26-34) PG MCHC 34.4 (30-36) % RDW 13.7 (11.6-14.8) % Plt Count 234 (150-400) X10^3/uL Neut % (Auto) 51.6 (50-75) % Lymph % (Auto) 34.6 (25-40) % Colbert % (Auto) 9.9 (3-14) % Eos % (Auto) 3.6 (2-4) % Baso % (Auto) 0.3 (0-2) % Neut # (Auto) 2600 (0035-1400) /uL Lymph # (Auto) 1700 (4875-3137) /uL Colbert # (Auto) 500 (0-900) /uL Eos # (Auto) 200 (0-450) /uL Baso # (Auto) 0 (0-100) /uL D-Dimer 3857 H (<500) ng/ml Sodium 140 (137-145) mmol/L Potassium 4.1 (3.4-5.1) mmol/L Chloride 107 (98-107) mmol/L Carbon Dioxide 25 (22-32) mmol/L BUN 18 (9-20) mg/dL Creatinine 0.91 (0.66-1.25) mg/dL Estimated GFR > 60 (>60) mL/min BUN/Creatinine Ratio 19.8 (6-22) Glucose 90 (70-100) mg/dL Calcium 8.7 (8.4-10.2) mg/dL Total Bilirubin 0.3 (0.2-1.3) mg/dL AST 85 H (17-59) IU/L ALT 83 H (<50) IU/L Alkaline Phosphatase 53 (38-126) U/L Total Creatine Kinase 825 H 743 H (55-170) U/L Troponin I < 0.012 (0.01-0.034) ng/mL Total Protein 7.1 (6.3-8.2) g/dL Albumin 4.3 (3.5-5.0) g/dL Globulin 2.8 (1.7-4.1) g/dL Albumin/Globulin Ratio 1.5 (1.0-2.8) Imaging Data CT scan - chest: Radiologist's Impression: No pulmonary embolus no acute cardiopulmonary process MDM Narrative Medical decision making narrative: Differential includes forearm strain/sprain, DVT of the upper extremity, cellulitis Patient's pain has no precipitating event. Pain is in in the right upper forearm and has some associated numbness and tingling sensations in his hand. He also feels some pain radiating up into his right pectoral/axillary region. There is some warmth to palpation of the affected area but no tenderness to palpation of the forearm, wrist, elbow, shoulder. There is no associated redness, induration or other signs of infection. He has been afebrile. He is HIV positive but denies IV drug use or any other risk factors for blood clots. He does have significant family history-his father had 2 early onset MIs with 1 causing his at age 50. Because there is no other obvious cause of his forearm discomfort, have concerns about a blood clot so ultrasound and D-dimer ordered Ultrasound of right upper extremity is negative for DVT. However his D-dimer is nearly 4000. This along with his symptoms radiating to his right pectoral region necessitates a CT angio to rule out PE. Patient placed on telemetry at this point, cardiac panel ordered. Patient is not complaining of significant pain, states it is just a deep ache in his right forearm but he declines any pain medication. CT scanner at this facility is on diversion, patient will need to be transferred to [facility] for CT and then return here. This was coordinated with scheduled and patient will be picked up at 1845. Discussed case Dr. Vigil at 1800-she recommends Lovenox SQ for now. Patient continues to be stable. EKG unremarkable. He is comfortable and not complaining of shortness of breath or chest pain but his symptoms a deep ache in his right forearm in the region continue. Patient has been signed off to Dr. Vigil at 1800. 1800 patient signed to. Patient was going for CT angio due to CT down time. He was given therapeutic dose of Lovenox to cover for pulmonary embolism. He had some arm swelling chest discomfort elevated D-dimer 3857, negative troponin no EKG changes CT does not show any evidence of pulmonary embolism or acute cardiopulmonary process. CPK slightly elevated 825 it did go down to 743 evidence of significant rhabdomyolysis Patient reports that he was moving big heavy rocks it was something that he does regularly. He reports his pain is significantly improved after being in the emergency department for 10 hours. He was good peripheral pulses able to move fingers compartments are soft but he does report it is gone down significantly. No concern for compartment syndrome at this time Discharge Plan Departure Patient Disposition: Home Clinical Impression: Arm pain, right Instructions: DI for Arm Pain Activity Restrictions/Additional Instructions: *You have been diagnosed with right arm pain *What to do: At this time keep elevated ice as needed. Rest I would avoid strenuous activity for the next couple of days. Please drink plenty of fluids to help flush out your system *Continue to take medications as directed Tylenol Motrin are okay take as directed *Follow up with your primary care provider in 2-3 days or call [phone] *Return to ER if you should have increasing pain swelling inability to move finger or any new, worsening or concerning symptoms Prescriptions: No Action citalopram 20 mg tablet 20 mg PO DAILY Qty: 90 3RF Biktarvy 50-200-25 mg tablet 1 tab PO DAILY Qty: 90 0RF Referrals: Sandra Good MD [Primary Care Provider] - Stand Alone Forms: Patient Portal/API/Survey
[2024-06-08 14:10] LABS: Add Manual Diff / Slide Review NO; Basophils Absolute Auto 0 /uL (0-100); Basophils Percent Auto 0.3 % (0-2); Eosinophils Absolute Auto 200 /uL (0-450); Eosinophils Percent Auto 3.6 % (2-4); Hematocrit 44.4 % (41-53); Hemoglobin 15.3 g/dL (13.5-17.5); Lymphocytes Absolute Auto 1700 /uL (1100-4500); Lymphocytes Percent Auto 34.6 % (25-40); Mean Corpuscular HGB Conc 34.4 % (30-36); Mean Corpuscular Hemoglobin 30.2 PG (26-34); Mean Corpuscular Volume 87.8 fL (80-100); Monocytes Absolute Auto 500 /uL (0-900); Monocytes Percent Auto 9.9 % (3-14); Neutrophils Absolute Auto 2600 /uL (1500-7000); Neutrophils Percent Auto 51.6 % (50-75); Platelet Count 234 X10^3/uL (150-400); Red Blood Cell Count 5.06 X10^6/uL (4.5-5.9); Red Cell Distribution Width 13.7 % (11.6-14.8); White Blood Cell Count 5.1 X10^3/uL (4.5-11.0)
[2024-06-08 14:20] LABS: Alanine Aminotransferase 83 IU/L (<50); Albumin 4.3 g/dL (3.5-5.0); Albumin Globulin Ratio 1.5 (1.0-2.8); Alkaline Phosphatase 53 U/L (38-126); Aspartate Aminotransferase 85 IU/L (17-59); BUN Creatinine Ratio 19.8 (6-22); Bilirubin Total 0.3 mg/dL (0.2-1.3); Blood Urea Nitrogen 18 mg/dL (9-20); Calcium 8.7 mg/dL (8.4-10.2); Carbon Dioxide 25 mmol/L (22-32); Chloride 107 mmol/L (98-107); Estimated Glomerular Filt Rate > 60 mL/min (>60); Globulin 2.8 g/dL (1.7-4.1); Glucose 90 mg/dL (70-100); HEMOLYSIS < 15 (0-50); Potassium 4.1 mmol/L (3.4-5.1); Sodium 140 mmol/L (137-145); Total Protein 7.1 g/dL (6.3-8.2)
[2024-06-08 14:23] LABS: D Dimer 3857 ng/ml (<500)
[2024-06-08 15:14] LABS: Creatine Kinase 825 U/L (55-170)
--- NOTE | 2024-06-08 18:03 | EKG_ITS ---
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
[2024-06-08] MEDS: SODIUM CHLORIDE 0.9% 1,000 ML 1000 ML IV (18:21)
[2024-06-08 18:25] LABS: Creatine Kinase 743 U/L (55-170)
[2024-06-08] MEDS: ENOXAPARIN 100 MG/ML SYRINGE SUBCUT (18:27)
[2024-06-08 18:39] LABS: Troponin I < 0.012 ng/mL (0.01-0.034)
--- NOTE | 2024-06-08 20:59 | PC.NURSE ---
Pt returns from outside facility
== END 2024-06-08 21:38 | disposition home or self-care (01) ==
PROVIDERS: Physician Assistant; Emergency Provider Emergency Medicine; PCP Family Medicine
DX: M79.601 Pain in right arm (principal); Z21 Asymptomatic human immunodeficiency virus [HIV] infection status
CPT/HCPCS: 36415; 80053; 82550; 84484; 85025; 85379; 93005; 93971; 96372; 99284; J1650

== ENCOUNTER → 2024-06-20 09:28 | Outpatient (CLI) | payer BC, SELFPAY ==
[2024-06-20 10:26] LABS: Protein (Total) Urine Random 6 mg/dL (0-12)
[2024-06-20 10:29] LABS: Alanine Aminotransferase 68 IU/L (<50); Albumin 4.4 g/dL (3.5-5.0); Albumin Globulin Ratio 1.8 (1.0-2.8); Alkaline Phosphatase 58 U/L (38-126); Aspartate Aminotransferase 54 IU/L (17-59); BUN Creatinine Ratio 18.4 (6-22); Bilirubin Total 0.5 mg/dL (0.2-1.3); Blood Urea Nitrogen 19 mg/dL (9-20); C-Reactive Protein Quant < 0.5 mg/dL (<1.0); Calcium 9.2 mg/dL (8.4-10.2); Carbon Dioxide 22 mmol/L (22-32); Chloride 107 mmol/L (98-107); Creatine Kinase 356 U/L (55-170); Estimated Glomerular Filt Rate > 60 mL/min (>60); Globulin 2.4 g/dL (1.7-4.1); Glucose 101 mg/dL (70-100); HEMOLYSIS < 15 (0-50); Potassium 4.7 mmol/L (3.4-5.1); Sodium 139 mmol/L (137-145); Total Protein 6.8 g/dL (6.3-8.2); Uric Acid 7.8 mg/dL (3.5-8.5)
[2024-06-20 10:48] LABS: Erythrocyte Sedimentation Rate 4 MM/HR (0-15)
[2024-06-20 10:56] LABS: Prostate Specific Antigen Scrn 0.584 ng/mL (0.1-4.0)
[2024-06-22 13:09] LABS: HIV 1 RNA Reactive (Non Reactive); HIV 2 RNA Non Reactive (Non Reactive)
== END ==
PROVIDERS: PCP Family Medicine; Referring Provider Family Medicine; Visit Provider Family Medicine
DX: R74.8 Abnormal levels of other serum enzymes (principal); R79.89 Other specified abnormal findings of blood chemistry; M79.639 Pain in unspecified forearm; M54.9 Dorsalgia, unspecified; M25.50 Pain in unspecified joint; Z21 Asymptomatic human immunodeficiency virus [HIV] infection status; Z12.5 Encounter for screening for malignant neoplasm of prostate
CPT/HCPCS: 36415; 80053; 82550; 84156; 84550; 85651; 86140; 87535; 87538; G0103

== ENCOUNTER → 2025-01-01 09:07 | Outpatient (CLI) | payer OTHER, SELFPAY ==
[2025-01-01 10:27] LABS: Cholesterol 192 mg/dL (140-199); HDL Cholesterol 38 mg/dL (40-60); Triglycerides 89 mg/dL (35-150)
== END ==
PROVIDERS: PCP Family Medicine; Referring Provider Internal Medicine; Visit Provider Internal Medicine
DX: E78.2 Mixed hyperlipidemia (principal)
CPT/HCPCS: 36415; 80061

== ENCOUNTER → 2025-01-23 06:49 | Outpatient (CLI) | payer OTHER, SELFPAY ==
--- NOTE | 2025-01-23 06:51 | DI.US.S_ITS ---
PROCEDURE: US ARTERIAL DUPLEX UE BI INDICATIONS: Claudication of UE, CHEST PAIN, TECHNIQUE: Color and pulse Doppler interrogation was performed of both upper extremity arterial systems, with image documentation. COMPARISON: [facility], CT, CT ANGIO CHEST PE, 06/08/2024, 20:14. FINDINGS: Right upper extremity: Subclavian artery (mid): 114 cm/sec, with triphasic flow. Axillary artery: 114 cm/sec, with biphasic flow. Brachial artery (proximal): 97 cm/sec, with monophasic flow. Brachial artery (mid): 101 cm/sec, with monophasic flow. Brachial artery (distal): 86 cm/sec, with monophasic flow. Radial artery (proximal): 62 cm/sec, with monophasic flow. Radial artery (mid): 69 cm/sec, with monophasic flow. Radial artery (distal): 58 cm/sec, with monophasic flow. Ulnar artery (proximal): 56 cm/sec, with monophasic flow. Ulnar artery (mid): 59 cm/sec. with monophasic flow. Ulnar artery (distal): 65 cm/sec, with monophasic flow. Zarco-scale imaging description: No significant plaque is seen. Left upper extremity: Subclavian artery (mid): 85 cm/sec, with triphasic flow. Axillary artery: 109 cm/sec, with triphasic flow. Brachial artery (proximal): 82 cm/sec, with triphasic flow. Brachial artery (mid): 92 cm/sec, with triphasic flow. Brachial artery (distal): 91 cm/sec, with biphasic flow. Radial artery (proximal): 63 cm/sec, with biphasic flow. Radial artery (mid): 59 cm/sec, with monophasic flow. Radial artery (distal): 72 cm/sec. with monophasic flow. Ulnar artery (proximal): 59 cm/sec, with monophasic flow. Ulnar artery (mid): 68 cm/sec, with monophasic flow. Ulnar artery (distal): 65 cm/sec. with monophasic flow. Zarco-scale imaging description: No significant plaque is seen. IMPRESSION: No significant upper extremity arterial stenosis. Dictated by: Isaak Us M.D. on 01/27/2025 at 14:42 Approved by: Isaak Us M.D. on 01/27/2025 at 14:48
--- NOTE | 2025-01-23 06:51 | DI.ECHO.S_ITS ---
[facility] : : [address] : : [place] : : [id number] : : Phone: [phone] Echocardiogram Report + + :Name: ANAND TERRY Study Date: 01/23/2025 Height: 70 in : :[facility] ReadingLocation: Weight: 200 lb : : Gender: Male BSA: 2.1 m2 : :: 1980 Age: 44 yrs BP: 128/86 mmHg: :Reason For Study: Chest pain : :Ordering Physician: ACACIA MCBRIDE Performed By: Orville Ortiz : :Referring: ACACIA MCBRIDE : + + Interpretation Summary - The left ventricular contractility is normal. Estimated ejection fraction is greater than 60% with no segmental wall motion abnormalities. Mild concentric LVH. Normal diastolic function. - The right ventricular contractility is normal. - All cardiac chambers are of normal size. - No significant valvular abnormalities. - No obvious intracardiac shunts. - No obvious intracardiac masses nor thrombi. - No hemodynamically significant pericardial effusion. - Low right-sided filling pressures. Conclusion: Normal biventricular function with no significant valvular abnormalities. Mild concentric LVH present. Procedure: A two-dimensional transthoracic echocardiogram with color flow and Doppler was performed. The study quality was technically adequate. There is no prior echocardiogram noted for this patient. The patient was in normal sinus rhythm during the exam. Left Ventricle: The left ventricle is normal in size. Left ventricular wall thickness is mildly increased. Left ventricular systolic function is normal. The ejection fraction is estimated to be 60-65%. There are no focal wall motion abnormalities. Normal diastolic function. Right Ventricle: The right ventricle is normal in size and function. Atria: The left atrial size is normal. Right atrial size is normal. There is no Doppler evidence for an interatrial shunt. Mitral Valve: The mitral valve leaflets appear to open well. There is no mitral valve stenosis. There is no mitral regurgitation noted. Aortic Valve: The aortic valve is trileaflet. The aortic valve opens well. There is no aortic valve stenosis. No aortic regurgitation is present. Tricuspid Valve: The tricuspid valve leaflets are thin and pliable. There is trace tricuspid regurgitation. Pulmonary artery pressures cannot be estimated because of the lack of a measurable TR jet velocity but the IVC suggests a CVP of around 3 mmHg. Pulmonic Valve: The pulmonic valve is not well seen, but is grossly normal. There is a trace or physiologic amount of pulmonic regurgitation. Great Vessels: The aortic root is normal size. The ascending aorta is normal in size. The aortic arch could not be visualized. The pulmonary artery is not well visualized, but is probably normal size. The IVC is of normal diameter and collapses greater than 50% with a sniff. This suggests a low right atrial pressure of 3 mm Hg. Pericardium/ Pleura There is no pericardial effusion. MMode/2D Measurements & Calculations LVIDd: 4.4 cm LVOT diam: 2.4 cm LVIDs: 2.7 cm Ao root diam: 3.7 cm FS: 39.7 % asc Aorta Diam: 3.5 cm IVSd: 1.2 cm LVPWd: 1.2 cm LV kaur. diameter/BSA (cm/m^2): 2.1 LV sys. diameter/BSA (cm/m^2): 1.3 LA A2 area: 21.5 cm2 RA long axis: 5.3 cm LA A4 area: 19.6 cm2 RA area: 15.7 cm2 LA length (vol): 5.9 cm RA vol: 39.8 ml LA vol: 60.7 ml RA : 19.0 ml/m2 LA vol index: 29.1 ml/m2 IVC diam: 0.99 cm RVD1 (basal): 2.8 cm RVD2 (mid): 2.6 cm TAPSE: 2.0 cm Doppler Measurements & Calculations Ao V2 max: 116.7 cm/sec LVOT Max Seth: 107.7 cm/sec Ao V2 mean: 80.1 cm/sec LV V1 max P.6 mmHg Ao max P.4 mmHg LV V1 VTI: 22.5 cm Ao mean P.9 mmHg ANNA(I,D): 4.3 cm2 Ao V2 VTI: 24.0 cm ANNA(V,D): 4.3 cm2 sev ratio: 0.94 ANNA indexed to BSA (cm^2/m^2): 2.1 MV E max seth: 70.7 cm/sec PA V2 max: 77.3 cm/sec MV A max seth: 59.1 cm/sec PA V2 mean: 53.8 cm/sec MV E/A: 1.2 PA mean P.3 mmHg Med Peak E' Seth: 7.8 cm/sec PA pr(Accel): 30.2 mmHg E/E' med: 9.0 Lat Peak E' Seth: 16.6 cm/sec E/E' lat: 4.3 E/e' average: 6.6 MV dec time: 0.14 sec SV(LVOT): 104.2 ml Reading Physician:RASHEED
--- NOTE | 2025-01-23 18:01 | DI.NM.S_ITS ---
DATE OF SERVICE: 01/23/2025 EXERCISE TREADMILL STRESS TEST PROCEDURE: Exercise treadmill stress test without imaging. ORDERING PROVIDER: Asa Mcbride MD. INDICATIONS: The patient is a 44-year-old male with hyperlipidemia, atypical chest discomfort, and a strong family history of CAD. FINDINGS: 1. The patient was able to exercise for 12 minutes 58 seconds on a standard Walter protocol suggesting good exercise capacity with an DEACON of -12%, achieving 14.8 METS. 2. He had a normal heart rate response to exercise, achieving a maximum heart rate of 172 bpm (98% of his predicted maximum). He had a borderline hypertensive blood pressure response to exercise with a resting blood pressure of 120/88 increasing to a maximum of 200/90. 3. He had moderate exertional dyspnea but no chest discomfort or other anginal symptoms. 4. His resting ECG shows sinus rhythm with normal ST segments. There are no significant ST-segment shifts or arrhythmias with stress except for an isolated PVC early in exercise with no other arrhythmias seen. IMPRESSION: 1. Normal exercise treadmill stress test for ischemia. 2. Good exercise capacity without angina and only rare, isolated PVCs early in exercise. 3. He had a mild hypertensive blood pressure response to exercise. Miugel Saavedra - RS/radha/[employer] doc#: [id number]/job#: [id number] dd: 01/23/2025 17:06:00 dt: 01/23/2025 17:51:00 DICTATING MD/COPIES TO: Zeke Weber MD; Asa Mcbride MD COPIES MNE: HARLEY;
== END ==
LOC: ECHO 06:50
PROVIDERS: PCP Family Medicine; Referring Provider Internal Medicine; Visit Provider Internal Medicine
DX: R07.9 Chest pain, unspecified (principal); I73.9 Peripheral vascular disease, unspecified
CPT/HCPCS: 93017; 93306; 93930